=== PATIENT | male | born 1955 | race Caucasian/White ===

== ENCOUNTER 2017-09-05 07:51 | Day surgery (SDC) | payer OTHER ==
[~2017-09-05] VITALS: Ht 172.7 cm; Wt 102.8 kg
[~2017-09-05 07:51] MED LIST: 24 HOUR ALLER15.8 ML BOTH NARES; AZELASTINE137 MCG/0. BOTH NARES; DIFLUCAN200 MG PO; FLAGYL500 MG PO; LEVAQUIN500 MG PO; PREDNISONE10 MG PO; SYMBICORT60 INHALAT IH; ULTRAM50 MG PO
[2017-09-05 08:00] VITALS: BP 129/78
[2017-09-05 18:07] VITALS: BP 142/79
[2017-09-05 19:05] VITALS: BP 122/73
[2017-09-05 23:19] VITALS: BP 116/62
[2017-09-06 03:35] VITALS: BP 115/60
[2017-09-06 06:03] LABS: HEMATOCRIT 40.4 % (38.0-50.0); HEMOGLOBIN 13.1 G/DL (12.5-16.6); MCHC 32.4 G/DL (30.0-36.0); MCV 92.7 FL (86-99); PLATELET COUNT 275 K/uL (156-360); RBC DIS.WIDTH-CV 12.4 % (11.8-14.6); RBC DIS.WIDTH-SD 41.9 % (39-53); RED BLOOD COUNT 4.36 M/uL (4.00-5.50); WHITE BLOOD COUNT 14.1 K/uL (4.1-10.2)
[2017-09-06 07:30] VITALS: BP 121/60
[2017-09-06] MEDS ORDERED: ENDOCET 5-3251 EACH PO (12:37)
[2017-09-06] MEDS ORDERED: COLACE100 MG PO (12:37)
== END 2017-09-06 13:47 | disposition home or self-care (01) ==
LOC: SDC 07:51 → NUC 10:00 → SDC 10:00 → ENRESERV 16:35 → 2EAST 17:08
PROVIDERS: Surgery
DX: C50.121 Malignant neoplasm of central portion of right male breast (principal); Z17.0 Estrogen receptor positive status [ER+]; F17.200 Nicotine dependence, unspecified, uncomplicated; Z80.3 Family history of malignant neoplasm of breast; Z80.0 Family history of malignant neoplasm of digestive organs; Z80.8 Family history of malignant neoplasm of other organs or systems
CPT/HCPCS: 78195; 78999; 85027; 87641; 88309; 94640; A9541; G0378; J0131; J0690; J1100; J1170; J2405; J2710; J3010; J3480; J7512; J7643; S0020